=== PATIENT | male | born 1995 | race Asian ===

== ENCOUNTER 2022-10-03 11:39 | Outpatient (CLI) | payer OTHER ==
[2022-10-03 18:43] LABS: BASOPHILS # (AUTO) 0.1 10^3/uL (0.0-0.1); BASOPHILS % (AUTO) 0.8 %; EOSINOPHILS # (AUTO) 0.5 10^3/uL (0.0-0.7); EOSINOPHILS % (AUTO) 6.4 %; HCT - HEMATOCRIT 44.8 % (42.0-52.0); HGB - HEMOGLOBIN 14.6 g/dL (14.0-18.0); LYMPHOCYTES # (AUTO) 1.8 10^3/uL (1.5-3.5); LYMPHOCYTES % (AUTO) 24.5 %; MEAN CORPUSCULAR HEMOGLOBIN 29.7 pg (27.0-31.0); MEAN CORPUSCULAR HGB CONC 32.6 g/dL (32.0-36.0); MEAN CORPUSCULAR VOLUME 91.1 fL (80.0-94.0); MONOCYTES # (AUTO) 0.5 10^3/uL (0.0-1.0); MONOCYTES % (AUTO) 7.5 %; NEUTROPHILS # (AUTO) 4.3 10^3/uL (1.5-6.6); NEUTROPHILS % (AUTO) 60.4 %; PLT - PLATELET COUNT 311 10^3/uL (130-450); RED BLOOD COUNT 4.92 10^6/uL (4.70-6.10); RED CELL DISTRIBUTION WIDTH 13.4 % (12.0-15.0); WHITE BLOOD COUNT 7.2 x10^3/uL (4.8-10.8)
[2022-10-03 19:19] LABS: ALBUMIN 4.4 g/dL (3.2-5.5); ALBUMIN/GLOBULIN RATIO 1.3 (1.0-2.2); BILIRUBIN,TOTAL 0.7 mg/dL (0.2-1.0); CALCIUM 9.6 mg/dL (8.5-10.3); CREATININE 0.8 mg/dL (0.6-1.2); POTASSIUM 4.1 mmol/L (3.5-5.0); TOTAL PROTEIN 7.8 g/dL (6.7-8.2)
== END 2022-10-03 11:40 | disposition home or self-care (01) ==
LOC: LAB.N 11:39
PROVIDERS: ATTEND Physician Assistant
DX: I10 Essential (primary) hypertension (principal)
CPT/HCPCS: 36415; 80053; 85025

== ENCOUNTER 2022-11-15 18:48 | Emergency (ER) | payer OTHER ==
--- NOTE | 2022-11-15 20:05 | ED Physician Documentation ---
PD HPI HEENT - Stated complaint Stated Complaint: +C,SORE THROAT - Chief complaint Chief Complaint: Fever - History obtained from History obtained from: Patient - Additional information Additional information: HPI from patient. Patient complains of fever, Tmax 104, since yesterday, as well as sore throat, frequent but nonproductive/dry cough. He has been taking ibuprofen and Tylenol, predominantly to try to effect fever control. Patient says he took a COVID test at home earlier today and result was positive. Last dose of analgesic/antipyretic was ibuprofen (cannot recall the dose) at approximately 4 PM today. Review of Systems Constitutional: reports: Fever, Myalgias Throat: reports: Sore throat Respiratory: reports: Cough. denies: Dyspnea PD PAST MEDICAL HISTORY - Past Medical History Past Medical History: No - Present Medications Home Medications: Ambulatory Orders Medication Instructions Recorded Confirmed Benzonatate [Tessalon] 200 mg PO TID PRN #20 cap 11/15/22 - Allergies Allergies/Adverse Reactions: Allergies Allergy/AdvReac Type Severity Reaction Status Date / Time No Known Drug Allergies Allergy Verified 11/15/22 18:50 PD ED PE NORMAL - Vitals Vital signs reviewed: Yes - General General: Alert and oriented X 3, No acute distress, Well developed/nourished - HEENT HEENT: Moist mucous membranes, Pharynx benign - Respiratory Respiratory: No respiratory distress, Clear bilaterally Results - Vitals Vitals: Vital Signs - 24 hr 11/15/22 20:49 Temperature 37.7 C Heart Rate 101 H Respiratory 18 Rate Blood Pressure 127/76 O2 Saturation 99 Oxygen O2 Source Room air PD Medical Decision Making - ED course Complexity details: considered differential, d/w patient ED course: Will presume etiology of patient's is COVID given that his symptoms are consistent with COVID and patient report that he took a home test today that was positive for COVID. He is in NAD with clear lungs; emergent testing is not indicated at this time. Patient has not had any criteria that would indicate benefit/necessity regarding antiviral medications. I did offer antiviral medications (paxlovid) but explained that he does not have risk criteria for progression to severe illness (i.e. he is as likely to get better within same time frame with or without rx), and he agrees with no anti-viral medications He is given 10 mg p.o. Decadron for the sore throat, p.o. Tylenol for the fever, and Tessalon Perles for his cough. Prescription for Tessalon Perles was provided. Departure - Departure Disposition: 01 Home, Self Care Clinical Impression: Viral syndrome Condition: Good Instructions: ED Viral Syndrome Follow-Up: Elenita Palma PA-C [Primary Care Provider] - () Prescriptions: Benzonatate [Tessalon] 200 mg PO TID PRN #20 cap PRN Reason: Cough Comments: You are being provided a prescription for a medication that can help reduce the severity/frequency of cough (Tessalon Perles). Google "CDC isolation" and then click on the link to "Isolation and Precautions for People with COVID-19 - CDC". This will have useful information for you as well as household contacts. There is a calculator on the page that will determine when you can end isolation. Forms: PCP List, Activity restrictions Discharge Date/Time: 11/15/22 20:49
[2022-11-15] MEDS ORDERED: ACETAMINOPHEN 325 MG TABLET PO STA (20:28)
[2022-11-15] MEDS ORDERED: BENZONATATE 100 MG CAPSULE PO STA (20:28)
[2022-11-15] MEDS ORDERED: CHERRY SYRUP 10 ML UDC PO ONE (20:29)
[2022-11-15] MEDS ORDERED: DEXAMETHASONE 10 MG/ML VIAL PO STA (20:29)
[2022-11-15 20:53] VITALS: BP 127/76
== END 2022-11-15 20:49 | disposition home or self-care (01) ==
LOC: ED 18:48
DX: U07.1 COVID-19 (principal)
CPT/HCPCS: 99282; 99283; A9270

== ENCOUNTER 2022-12-15 13:34 | Outpatient (CLI) | payer OTHER ==
--- NOTE | 2022-12-15 18:45 | XRAY Report ---
PROCEDURE: Chest 2 View X-Ray INDICATIONS: CHEST PAIN TECHNIQUE: 2 views of the chest were acquired. COMPARISON: None. FINDINGS: Surgical changes and devices: None. Lungs and pleura: No pleural effusions or pneumothorax. Lungs are clear. Mediastinum: Mediastinal contours appear normal. Heart size is normal. Bones and chest wall: No suspicious bony lesions. Overlying soft tissues appear unremarkable. IMPRESSION: No acute cardiopulmonary process. Reviewed by: Gulshan Park MD on 12/15/2022 5:43 PM CR Approved by: Gulshan Park MD on 12/15/2022 5:43 PM [facility] Station ID: [id number]
== END 2022-12-15 13:35 | disposition home or self-care (01) ==
LOC: DI 13:34
PROVIDERS: ATTEND Physician Assistant Medical
DX: R07.9 Chest pain, unspecified (principal)